=== PATIENT | female | born 1975 | race Caucasian/White ===

== ENCOUNTER 2022-01-19 21:16 | Emergency (ER) | payer BC, OTHER ==
[~2022-01-19] VITALS: Ht 162.6 cm; Wt 108.5 kg
--- NOTE | 2022-01-19 21:47 | ED Chest Pain ---
General Chief Complaint: Chest Pain Stated Complaint: CP,BACK PAIN History of Present Illness Date Seen by Provider: Jan 19, 2022 Time Seen by Provider: 21:42 Initial Comments 46-year-old female with PMH of chronic iron deficiency anemia, not currently on iron, is here with complaints of retrosternal chest pain which began today afternoon. Denies shortness of breath, dizziness, headache, abdominal pain, fever. Patient does not have any history of cardiac disease. Allergies and Home Medications Allergies Coded Allergies: buspirone (Unverified Adverse Reaction, Unknown, 01/19/22) paroxetine (Unverified Adverse Reaction, Unknown, 01/19/22) Patient Home Medication List Home Medication List Reviewed: Yes Review of Systems Review of Systems Constitutional: no symptoms reported EENTM: No Symptoms Reported Respiratory: No Symptoms Reported Cardiovascular: Chest Pain Gastrointestinal: No Symptoms Reported Genitourinary: No Symptoms Reported Musculoskeletal: no symptoms reported Skin: no symptoms reported Psychiatric/Neurological: No Symptoms Reported Endocrine: No Symptoms Reported Hematologic/Lymphatic: No Symptoms Reported Past Warxvzg-Hrypgy-Jinair Hx Patient Social History Tobacco Use?: Yes Tobacco type used: Cigarettes Smoking Status: Current Everyday Smoker Smokeless Tobacco Frequency: Never a User Use of E-Cig and/or Vaping Hawk: Never a User Substance use?: No Alcohol Use?: Yes Alcohol type: Other Alcohol Frequency: Several times a month Pt feels they are or have been: No Immunizations Up To Date First/Initial COVID19 Vaccinat: Date unknown Second COVID19 Vaccination Segundo: Date unknown 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 oz. kg; BMI Method: General Appearance: No Apparent Distress, WD/WN HEENT: PERRL/EOMI Neck: Full Range of Motion Respiratory: Chest Non Tender, Lungs Clear, Normal Breath Sounds Cardiovascular: Regular Rate, Rhythm, No Edema, No Murmur, Normal Peripheral Pulses Gastrointestinal: Normal Bowel Sounds, Soft Neurologic/Psychiatric: Alert, Oriented x3, No Motor/Sensory Deficits Skin: Normal Color Progress/Results/Core Measures Results/Orders Lab Results Laboratory Tests Test 01/19/22 10:24 01/19/22 21:30 Range/Units Urine Color YELLOW Urine Clarity CLEAR Urine pH 6.5 5-9 Urine Specific Purchase 1.015 L 1.016-1.022 Urine Protein NEGATIVE NEGATIVE Urine Glucose (UA) NEGATIVE NEGATIVE Urine Ketones NEGATIVE NEGATIVE Urine Nitrite NEGATIVE NEGATIVE Urine Bilirubin NEGATIVE NEGATIVE Urine Urobilinogen 0.2 < = 1.0 MG/DL Urine Leukocyte Esterase NEGATIVE NEGATIVE Urine RBC (Auto) NEGATIVE NEGATIVE Urine RBC NONE /HPF Urine WBC RARE /HPF Urine Squamous Epithelial Cells 2-5 /HPF Urine Crystals NONE /LPF Urine Bacteria NEGATIVE /HPF Urine Casts NONE /LPF Urine Mucus MODERATE H /LPF Urine Culture Indicated NO Urine Opiates Screen NEGATIVE NEGATIVE Urine Oxycodone Screen NEGATIVE NEGATIVE Urine Methadone Screen NEGATIVE NEGATIVE Urine Propoxyphene Screen NEGATIVE NEGATIVE Urine Barbiturates Screen NEGATIVE NEGATIVE Ur Tricyclic Antidepressants Screen NEGATIVE NEGATIVE Urine Phencyclidine Screen NEGATIVE NEGATIVE Urine Amphetamines Screen NEGATIVE NEGATIVE Urine Methamphetamines Screen NEGATIVE NEGATIVE Urine Benzodiazepines Screen NEGATIVE NEGATIVE Urine Cocaine Screen NEGATIVE NEGATIVE Urine Cannabinoids Screen NEGATIVE NEGATIVE White Blood Count 10.6 4.3-11.0 10^3/uL Red Blood Count 3.88 3.80-5.11 10^6/uL Hemoglobin 9.2 L 11.5-16.0 g/dL Hematocrit 30 L 35-52 % Mean Corpuscular Volume 76 L 80-99 fL Mean Corpuscular Hemoglobin 24 L 25-34 pg Mean Corpuscular Hemoglobin Concent 31 L 32-36 g/dL Red Cell Distribution Width 16.0 H 10.0-14.5 % Platelet Count 333 130-400 10^3/uL Mean Platelet Volume 10.2 9.0-12.2 fL Immature Granulocyte % (Auto) 0 % Neutrophils (%) (Auto) 57 42-75 % Lymphocytes (%) (Auto) 31 12-44 % Monocytes (%) (Auto) 9 0-12 % Eosinophils (%) (Auto) 3 0-10 % Basophils (%) (Auto) 1 0-10 % Neutrophils # (Auto) 6.0 1.8-7.8 10^3/uL Lymphocytes # (Auto) 3.2 1.0-4.0 10^3/uL Monocytes # (Auto) 0.9 0.0-1.0 10^3/uL Eosinophils # (Auto) 0.3 0.0-0.3 10^3/uL Basophils # (Auto) 0.1 0.0-0.1 10^3/uL Immature Granulocyte # (Auto) 0.0 0.0-0.1 10^3/uL Prothrombin Time 12.0 L 12.2-14.7 SEC INR Comment 0.9 0.8-1.4 Activated Partial Thromboplast Time 28 24-35 SEC D-Dimer 0.24 0.00-0.49 UG/ML Sodium Level 140 135-145 MMOL/L Potassium Level 3.5 L 3.6-5.0 MMOL/L Chloride Level 103 98-107 MMOL/L Carbon Dioxide Level 25 21-32 MMOL/L Anion Gap 12 5-14 MMOL/L Blood Urea Nitrogen 7 7-18 MG/DL Creatinine 0.74 0.60-1.30 MG/DL Estimat Glomerular Filtration Rate 100 BUN/Creatinine Ratio 9 Glucose Level 90 70-105 MG/DL Calcium Level 9.6 8.5-10.1 MG/DL Corrected Calcium 9.3 8.5-10.1 MG/DL Magnesium Level 2.2 1.6-2.4 MG/DL Total Bilirubin < 0.2 0.1-1.0 MG/DL Aspartate Amino Transf (AST/SGOT) 20 5-34 U/L Alanine Aminotransferase (ALT/SGPT) 15 0-55 U/L Alkaline Phosphatase 41 40-136 U/L Troponin I < 0.30 <0.30 NG/ML Total Protein 7.0 6.4-8.2 GM/DL Albumin 4.4 3.2-4.5 GM/DL My Orders Orders - ROSA ORTEGA MD Cbc With Automated Diff (01/19/22 21:47) Magnesium (01/19/22 21:47) Chest 1 View Ap/Pa Only (01/19/22 21:47) Ekg Tracing (01/19/22 21:47) Comprehensive Metabolic Panel (01/19/22 21:47) Protime With Inr (01/19/22 21:47) Partial Thromboplastin Time (01/19/22 21:47) Monitor-Rhythm Ecg Trace Only (01/19/22 21:47) Aspirin Chewable Tablet (Baby Aspirin Ch (01/19/22 22:00) Ed Iv/Invasive Line Start (01/19/22 21:47) Fibrin Degradation Products (01/19/22 21:47) Troponin I Fs (01/19/22 21:47) Drug Screen Stat (Urine) (01/19/22 21:48) Ua Culture If Indicated (01/19/22 21:48) Progress Progress Note : Progress Note 1. ACS RULE OUT: ANEMIA INDUCED CHEST PAIN: - CXR - EKG/ Troponin : non-ischemic - Pt took 2 aspirin at home prior to coming to ER - Labs unremarkable - UA/ UDS negative - Advised pt to follow up with PCP within 3 to 7 days and explained need for an entire anemia panel and iron studies, as well as thyroid levels, and stress testing -The patient was seen in the ED, and treated appropriately to presentation at a specific point in time. Patient is informed that there is a possibility that disease and illness can evolve and change in acuity rapidly or slowly after patient is discharged from the ER. Precautionary advice given to the patient for immediate return to ER if symptoms worsen or do not resolve, and to seek emergency care sooner rather than later. Pt also advised on the importance of PCP follow up and compliance with management and follow up plan with PCP and/or specialist, as this is part of the management plan. Pt verbally expressed understanding. Initial ECG Impression Date: Jan 20, 2022 Initial ECG Impression Time: : Initial ECG Rate: 98 Initial ECG Rhythm: Normal Sinus Initial ECG Intervals: Normal Initial ECG Impression: Normal Initial ECG Comparisson: No Previous ECG Available Departure Impression Primary Impression: Ruled out for myocardial infarction Additional Impression: Chronic anemia Disposition: 01 HOME, SELF-CARE Condition: Stable Departure-Patient Inst. Patient Instructions: Anemia Caused by Low Iron, Anemia, Possibly From Low Iron, Adult ED, Chest Pain (DC) Add. Discharge Instructions: - Advised pt to follow up with PCP within 3 to 7 days and explained need for an entire anemia panel and iron studies, as well as thyroid levels, and stress testing - Return to ER if symptoms worsen All discharge instructions reviewed with patient and/or family. Voiced understanding. ROSA ORTEGA MD Jan 19, 2022 21:47
[2022-01-19] MEDS ORDERED: ASPIRIN 81 MG CHEW (CHILDREN'S ASA) PO ONE (22:00)
[2022-01-19 22:01] LABS: BASOPHILS # (AUTO) 0.1 10^3/uL (0.0-0.1); BASOPHILS % (AUTO) 1 % (0-10); EOSINOPHILS # (AUTO) 0.3 10^3/uL (0.0-0.3); EOSINOPHILS % (AUTO) 3 % (0-10); HEMATOCRIT 30 % (35-52); HEMOGLOBIN 9.2 g/dL (11.5-16.0); LYMPHOCYTES # (AUTO) 3.2 10^3/uL (1.0-4.0); LYMPHOCYTES % (AUTO) 31 % (12-44); MEAN CORPUSCULAR HEMOGLOBIN 24 pg (25-34); MEAN CORPUSCULAR HGB CONC 31 g/dL (32-36); MEAN CORPUSCULAR VOLUME 76 fL (80-99); MEAN PLATELET VOLUME 10.2 fL (9.0-12.2); MONOCYTES # (AUTO) 0.9 10^3/uL (0.0-1.0); MONOCYTES % (AUTO) 9 % (0-12); NEUTROPHILS % (AUTO) 57 % (42-75); PLATELET COUNT 333 10^3/uL (130-400); WHITE BLOOD COUNT 10.6 10^3/uL (4.3-11.0)
[2022-01-19 22:35] LABS: INR 0.9 (0.8-1.4)
[2022-01-19 22:37] LABS: BUN/CREATININE RATIO 9; CALCIUM 9.6 MG/DL (8.5-10.1); CARBON DIOXIDE 25 MMOL/L (21-32); CHLORIDE 103 MMOL/L (98-107); CREATININE SERUM 0.74 MG/DL (0.60-1.30); GFR ESTIMATED 100; GLUCOSE 90 MG/DL (70-105); MAGNESIUM 2.2 MG/DL (1.6-2.4); POTASSIUM 3.5 MMOL/L (3.6-5.0); SODIUM 140 MMOL/L (135-145)
[2022-01-19 22:38] LABS: ALANINE AMINOTRANSFERASE 15 U/L (0-55); ALBUMIN 4.4 GM/DL (3.2-4.5); ALKALINE PHOSPHATASE 41 U/L (40-136); BILIRUBIN,TOTAL < 0.2 MG/DL (0.1-1.0)
[2022-01-19 22:48] LABS: BILIRUBIN,URINE NEGATIVE (NEGATIVE); CLARITY,URINE CLEAR; COLOR,URINE YELLOW; GLUCOSE, URINE (UA) NEGATIVE (NEGATIVE); KETONES,URINE NEGATIVE (NEGATIVE); LEUKOCYTE ESTERASE ,URINE NEGATIVE (NEGATIVE); NITRITE,URINE NEGATIVE (NEGATIVE); PH,URINE 6.5 (5-9); PROTEIN,URINE NEGATIVE (NEGATIVE)
[2022-01-19 22:57] LABS: BACTERIA,URINE NEGATIVE /HPF; WBC,URINE RARE /HPF
[2022-01-19 22:58] LABS: AMPHETAMINE SCREEN, URINE NEGATIVE (NEGATIVE); BARBITURATE SCREEN URINE NEGATIVE (NEGATIVE); BENZODIAZEPINES SCREEN URINE NEGATIVE (NEGATIVE); CANNABINOID SCREEN, URINE NEGATIVE (NEGATIVE); COCAINE SCREEN URINE NEGATIVE (NEGATIVE); METHADONE STAT NEGATIVE (NEGATIVE); OPIATE SCREEN URINE NEGATIVE (NEGATIVE); OXYCODONE STAT NEGATIVE (NEGATIVE); PROPOXYPHENE STAT NEGATIVE (NEGATIVE); TRICYCLIC ANTIDEPRESSANTS SCRE NEGATIVE (NEGATIVE)
[2022-01-20 00:15] VITALS: BP 162/71
--- NOTE | 2022-01-20 06:48 | Diagnostic Imaging Report ---
HISTORY: Chest pain TECHNIQUE: Single frontal view the chest COMPARISON: None FINDINGS: Lung volumes are normal. No consolidation is seen. There is no pleural effusion or pneumothorax. The cardiac silhouette is mildly prominent, may be accentuated by portable technique. There are calcifications at the left hilum and left lung, may be due to old granulomatous disease. IMPRESSION: 1. Mild cardiomegaly, likely accentuated by portable technique. No acute pulmonary abnormality is seen. Dictated by: Dictated on workstation # [id number]
== END 2022-01-20 00:15 | disposition home or self-care (01) ==
LOC: ER FS 21:18
DX: D50.9 Iron deficiency anemia, unspecified (principal); F17.210 Nicotine dependence, cigarettes, uncomplicated
CPT/HCPCS: 36415; 71045; 80053; 80306; 81000; 83735; 84484; 85025; 85379; 85610; 85730; 93005; 93041